=== PATIENT | female | born 1960 | race Caucasian/White ===

== ENCOUNTER 2016-04-01 11:22 | Emergency (ER) | payer BC ==
[2016-04-01] MEDS ORDERED: HYDROcodone/APAP 5-325MG 1 EACH TAB PO STA (12:02)
--- NOTE | 2016-04-01 12:02 | XR ---
EXAMINATION TYPE: XR shoulder complete LT DATE OF EXAM: 04/01/2016 11:57 AM COMPARISON: NONE HISTORY: Injury TECHNIQUE: 3 views FINDINGS: I see no fracture nor dislocation. Joint spaces are normal. There are no pathologic calcifi cations. IMPRESSION: Negative left shoulder exam.
--- NOTE | 2016-04-01 12:10 | ED ---
Upper Extremity HPI - General Chief Complaint: Extremity Injury, Upper Stated Complaint: shoulder pain Time Seen by Provider: 04/01/16 11:35 Source: patient, RN notes reviewed Mode of arrival: ambulatory Limitations: no limitations - History of Present Illness Initial Comments: 56-year-old female presents emergency department for left shoulder pain. Patient states she was pulling some furniture yesterday in which she states she has a pain with worsen overnight. Patient right-hand dominant. Patient denies any clicking or popping. She states any movement she has increased pain. Patient denies paresthesias. Patient states she's had no prior issues with her left shoulder. Patient denies chest pain or shortness of breath. Place: home - Related Data Home Medications Medication Instructions Recorded Confirmed Brio Inhaler 1 puff INHALATION QAM 10/14/15 10/15/15 Hydrochlorothiazide 25 mg PO QAM 10/14/15 10/15/15 Previous Rx's Medication Instructions Recorded traMADol HCL [Ultram] 50 mg PO Q4HR PRN #30 tab 10/15/15 Hydrocodone/Acetaminophen [[place] 1 tab PO Q6HR PRN #15 tab 04/01/16 5-325] Allergies Allergy/AdvReac Type Severity Reaction Status Date / Time STERI STRIPS AdvReac Rash/Hives Uncoded 04/01/16 11:26 Review of Systems ROS Statement: Those systems with pertinent positive or pertinent negative responses have been documented in the HPI. ROS Other: All systems not noted in ROS Statement are negative. Past Medical History Past Medical History: Asthma, Hypertension Additional Past Medical History / Comment(s): PATIENT STATES SHE HAD A VERY BAD POST-OP INFECTION (LESION OFF EAR) 20 YRS AGO AND WAS TREATED AT [facility], ONLY ONE "BIG GUN" ANTIBIOTIC CLEARED UP THE INFECTION, UNKNOWN IF MRSA. History of Any Multi-Drug Resistant Organisms: None Reported Past Surgical History: Tonsillectomy, Tubal Ligation Additional Past Surgical History / Comment(s): 09/28/16STEREOTACTIC BIOPSY RIGHT BREAST. Additional Past Anesthesia/Blood Transfusion Reaction / Comment(s): HAS EMOTIONAL RESPONSE, EITHER VERY AMOUROUS OR AGITATED. Past Psychological History: No Psychological Hx Reported Smoking Status: Former smoker Past Alcohol Use History: Occasional Additional Past Alcohol Use History / Comment(s): SMOKED FOR 40 YRS, QUIT . Past Drug Use History: None Reported - Past Family History Father Family Medical History: Cancer, Deep Vein Thrombosis (DVT) Additional Family Medical History / Comment(s): PANCREATIC CANCER Brother(s) Family Medical History: Cancer General Exam Limitations: no limitations General appearance: alert, in no apparent distress Neck exam: Present: normal inspection, full ROM. Absent: tenderness, meningismus, lymphadenopathy Respiratory exam: Present: normal lung sounds bilaterally. Absent: respiratory distress, wheezes, rales, rhonchi, stridor Cardiovascular Exam: Present: regular rate, normal rhythm, normal heart sounds. Absent: systolic murmur, diastolic murmur, rubs, gallop, clicks Extremities exam: Present: other (Left shoulder limited range of motion secondary pain there is no sulcus no obvious deformity noted tender with palpation patient has good strength of her bicep, tricep region) Neurological exam: Present: alert, oriented X3, CN II-XII intact, reflexes normal. Absent: motor sensory deficit Skin exam: Present: warm, dry, intact, normal color. Absent: rash Course Vital Signs 04/01/16 11:23 Temperature 97.5 F L Pulse Rate 68 Respiratory 20 Rate Blood Pressure 161/92 O2 Sat by Pulse 98 Oximetry Medical Decision Making - Medical Decision Making Per [id number] female presented for left shoulder injury. Patient left shoulder sprain. Patient will be discharged. Disposition Clinical Impression: Strain of shoulder Disposition: HOME SELF-CARE Condition: Stable Instructions: Shoulder Sprain (ED) Additional Instructions: Please return to the Emergency Department if symptoms worsen or any other concerns. Prescriptions: Hydrocodone/Acetaminophen [[place] 5-325] 1 tab PO Q6HR PRN #15 tab PRN Reason: Pain Referrals: Lorrie Walton MD [Primary Care Provider] - 1-2 days Donaldo De Leon DO [Doctor of Osteopathic Medicine] - 1-2 days Time of Disposition: 12:10
[2016-04-01 12:16] VITALS: RESP 16
[2016-04-01 12:22] VITALS: BP 130/94; PULSE 87; TEMP 97.6
== END 2016-04-01 12:22 | disposition home or self-care (01) ==
LOC: EC 11:22
DX: S46.912A Strain of unspecified muscle, fascia and tendon at shoulder and upper arm level, left arm, initial encounter (principal); I10 Essential (primary) hypertension; J45.909 Unspecified asthma, uncomplicated; X50.0XXA Overexertion from strenuous movement or load, initial encounter; Z91.048 Other nonmedicinal substance allergy status; Z79.51 Long term (current) use of inhaled steroids; Z79.899 Other long term (current) drug therapy; Z87.891 Personal history of nicotine dependence
CPT/HCPCS: 99283

== ENCOUNTER → 2016-06-26 | Outpatient (CLI) | payer BC ==
--- NOTE | 2016-06-26 10:49 | MM ---
Reason for exam: history of breast cancer, conservation therapy. Last mammogram was performed 9 months ago. History: Patient is postmenopausal, has history of breast cancer at age 55, and had first child after 28. Malignant MG pre op needle loc RT of the right breast, October 15, 2015. Malignant MG stereo VAD BX RT of the right breast, September 29, 2015. Physical Findings: Nurse did not find any significant physical abnormalities on exam. MG Diagnostic Mammo w CAD ELIOT Bilateral CC and MLO view(s) were taken. Prior study comparison: September 17, 2015, right breast MG work up mamm w CAD RT. September 03, 2015, bilateral MG screening mammo w CAD. There are scattered fibroglandular densities. No significant new findings when compared with previous films. These results were verbally communicated with the patient and result sheet given to the patient on 06/26/16. ASSESSMENT: Benign, BI-RAD 2 RECOMMENDATION: Follow-up diagnostic mammogram of both breasts in 1 year.
== END | disposition home or self-care (01) ==
LOC: RADMAMWWP 09:33
PROVIDERS: ATTEND Radiology Diagnostic Radiology
DX: Z08 Encounter for follow-up examination after completed treatment for malignant neoplasm (principal); Z85.3 Personal history of malignant neoplasm of breast

== ENCOUNTER → 2016-07-07 | Outpatient (CLI) | payer BC ==
[2016-07-07 10:04] LABS: Basophils # (A) 0.1 k/uL (0-0.2); Basophils % (A) 1 %; CH 31.6; CHCM 33.1; Eosinophils # (A) 0.4 k/uL (0-0.7); Eosinophils % (A) 4 %; HCT 45.6 % (34.0-46.0); HDW 2.26; HGB 14.9 gm/dL (11.4-16.0); Luc # (Auto) 0.29; Luc % (Auto) 3; Lymphocytes # (A) 1.5 k/uL (1.0-4.8); Lymphocytes % (A) 13 %; MCH 31.4 pg (25.0-35.0); MCHC 32.7 g/dL (31.0-37.0); MCV 96.2 fL (80.0-100.0); Mean Platelet Volume 7.1; Monocytes # (A) 0.6 k/uL (0-1.0); Monocytes % (A) 5 %; Neutrophils # (A) 8.3 k/uL (1.3-7.7); Neutrophils % (A) 75 %; RBC 4.74 m/uL (3.80-5.40); RDW 13.2 % (11.5-15.5); WBC 11.1 k/uL (3.8-10.6); WBC (Perox) 10.93
[2016-07-07 12:33] LABS: ALT 29 U/L (9-52); AST 21 U/L (14-36); Alkaline Phosphatase 79 U/L (38-126); Anion Gap 11 mmol/L; Blood Urea Nitrogen 18 mg/dL (7-17); Calcium 9.7 mg/dL (8.4-10.2); Carbon Dioxide 28 mmol/L (22-30); Chloride 101 mmol/L (98-107); Glucose 93 mg/dL (74-99); Non-African American GFR(MDRD) >60 (>60 ml/min/1.73 sqM); Potassium 4.1 mmol/L (3.5-5.1); Sodium 140 mmol/L (137-145); Total Bilirubin 0.5 mg/dL (0.2-1.3); Total Protein 6.8 g/dL (6.3-8.2)
[2016-07-07 12:58] LABS: Cancer Anitgen 153 12.8 U/mL (<35.1)
--- NOTE | 2016-07-07 15:47 | BD ---
EXAMINATION TYPE: MG DEXA axial skeleton. DATE OF EXAM: 07/07/2016 9:45 AM COMPARISON: 02.18.2002 CLINICAL HISTORY: C50.411 PERSONAL HX OF BREAST CANCER Height: 57.5 Weight: 107 FRAX RISK QUESTIONS: Alcohol (3 or more units per day): NO Family History (Parent hip fracture): YES, BUT NO FX Glucocorticoids (More than 3mos): YES (Ex: prednisone, prednisolone, methylprednisolone, dexamethasone, and hydrocortisone). History of Fracture in Adulthood: < 50 YRS ONLY Secondary Osteoporosis: NO 1. Type 1 Diabetes: NO 2. Hyperthyroidism: NO 3. Menopause before 45: YES 4. Malnutrition: NO 5. Chronic liver disease: NO Rheumatoid Arthritis: QUESTIONING THAT RIGHT NOW Current Tobacco Use: QUIT LAST AUGUST RISK FACTORS HISTORY OF: Other Fractures since Age 50: < AGE 50...LT ANKLE Family History of Osteoporosis: YES, HER MOTHER WITH NO HIP FXS Smoke tobacco: QUIT AUGUST...2015 Drink Alcohol: NO Active: YES Diet low in dairy products/other sources of calcium: NO Postmenopausal woman: 40 NATURAL Lost more than 2 inches in height since high school: YES Adrenal Insufficiency: NO MEDICATIONS: Prednisone or other steroids: ;BRIEOL, FOR ASTHMA AND COPD How Lon YRS Additional Medications: BP MEDS, HX OF RADIATION, CALCIUM AND VIT D, Additional History: HX OF BR CANCER, SEP 2015, RT BREAST, LUMPECTOMY, ASTHMA, COPD, HYPERTENSION EXAM MEASUREMENTS: Bone mineral densitometry was performed using the [employer] System. Bone mineral density as measured about the Lumbar spine is: ----- L1-L4(G/cm2): -1.3 T Score Values are as follows: ----- L1: -1.9 ----- L2: -1.8 ----- L3: -1.0 ----- L4: -0.8 ----- L1-L4: -1.3 Bone mineral density has: Decreased -7.8% since study of: 02.18.2002 Bone mineral density about the R hip (g/cm2): 0.765 Bone mineral density about the L hip (g/cm2): 0.777 T Score values are as follows: -----R Neck: -1.9 -----L Neck: -1.6 -----R Total: -1.9 -----L Total: -1.8 Bone mineral density has: Decreased -23.4% since study of: 02.18.2002 FRAX %'S: 8.2% CHANCE OF A MAJOR OSTEOPOROTIC FX AND A 1.0% CHANCE OF A HIP FX....PROBABILITY OF FX IN 10 YRS TIME IMPRESSION: Osteopenia (T Score between -2.5 and -1 as noted by T score values There is slightly increased risk of fracture and the patient may be considered for treatment. Re-Screen 2-5 years Bone density is diminished 23.4% within the bilateral hips from 2001. Bone density has diminished 7.8 % within the lumbar spine from 2001 NOTE: T-SCORE=SD OF THE YOUNG ADULT MEAN.
--- NOTE | 2016-07-07 20:40 | XR ---
EXAMINATION TYPE: XR chest 2V DATE OF EXAM: 07/07/2016 10:03 AM COMPARISON: None HISTORY: 56-year-old female with right breast cancer, status post radiation therapy in December 2015. TECHNIQUE: Frontal and lateral views FINDINGS: The cardiomediastinal silhouette, aorta, and pulmonary vasculature are within normal limits. There is hyperinflation with flattening of the hemidiaphragms. Blunting of the right costophrenic angle. No c onsolidation. IMPRESSION: Suspect underlying COPD. Clinically correlate. There is blunting of the right costophrenic angle that could represent a trace effusion or pleural-parenchymal scarring.
== END | disposition home or self-care (01) ==
LOC: RADBDWWP 09:18
DX: M85.80 Other specified disorders of bone density and structure, unspecified site (principal); R91.8 Other nonspecific abnormal finding of lung field; C50.411 Malignant neoplasm of upper-outer quadrant of right female breast
CPT/HCPCS: 36415; 71020; 77080; 80053; 85025; 86300

== ENCOUNTER → 2016-11-24 | Outpatient (CLI) | payer BC ==
[2016-11-24 12:04] LABS: CH 31.5; CHCM 32.7; HDW 2.21; MCH 32.4 pg (25.0-35.0); MCHC 33.5 g/dL (31.0-37.0); MCV 96.8 fL (80.0-100.0); Mean Platelet Volume 7.3; RBC 4.34 m/uL (3.80-5.40); RDW 13.9 % (11.5-15.5); WBC 8.4 k/uL (3.8-10.6)
== END | disposition home or self-care (01) ==
LOC: LABWHC1 11:36
PROVIDERS: ATTEND Dermatology
DX: L63.9 Alopecia areata, unspecified (principal)
CPT/HCPCS: 36415; 82728; 84443; 85027

== ENCOUNTER → 2017-06-27 | Outpatient (CLI) | payer BC ==
--- NOTE | 2017-06-27 12:02 | MM ---
Reason for exam: additional evaluation requested from prior study. Last mammogram was performed 1 year ago. History: Patient is postmenopausal, has history of breast cancer at age 55, and had first child at age 30. Family history of breast cancer in paternal aunt. Malignant MG pre op needle loc RT of the right breast, October 15, 2015. Malignant MG stereo VAD BX RT of the right breast, September 29, 2015. Physical Findings: Nurse Summary: 0.5cm nodule in the left breast at 9 o'clock (nurse kp). MG Diagnostic Mammo w CAD ELIOT Bilateral CC and MLO view(s) were taken. Prior study comparison: June 26, 2016, bilateral MG diagnostic mammo w CAD ELIOT. September 17, 2015, right breast MG work up mamm w CAD RT. The breast tissue is heterogeneously dense. This may lower the sensitivity of mammography. Post therapy change on the right breast. These results were verbally communicated with the patient and result sheet given to the patient on 06/27/17. ASSESSMENT: Benign, BI-RAD 2 RECOMMENDATION: Follow-up diagnostic mammogram of both breasts in 1 year.
--- NOTE | 2017-06-27 12:04 | USB ---
Reason for exam: clinical finding. History: Patient is postmenopausal, has history of breast cancer at age 55, and had first child at age 30. Family history of breast cancer in paternal aunt. Malignant MG pre op needle loc RT of the right breast, October 15, 2015. Malignant MG stereo VAD BX RT of the right breast, September 29, 2015. Indicated problem(s): palpable abnormality in the left breast. US Breast Limited LT Left limited breast ultrasound including focal area of concern, retroareolar and axilla demonstrates a 0.3 x 0.1 x 0.3cm lesion too small to characterize at 10 o'clock, anechoic and well defined border on image 11 mobile per the outsole compressor. Ductal prominence on the left. These results were verbally communicated with the patient and result sheet given to the patient on 06/27/17. ASSESSMENT: Benign, BI-RAD 2 RECOMMENDATION: Follow-up diagnostic mammogram of both breasts in 1 year.
== END | disposition home or self-care (01) ==
LOC: RADMAMWWP 09:37
PROVIDERS: ATTEND Radiology Diagnostic Radiology
DX: Z08 Encounter for follow-up examination after completed treatment for malignant neoplasm (principal); Z85.3 Personal history of malignant neoplasm of breast
CPT/HCPCS: 77066

== ENCOUNTER → 2018-06-28 | Outpatient (CLI) | payer BC ==
--- NOTE | 2018-06-28 11:32 | MM ---
Reason for exam: additional evaluation requested from prior study. Last mammogram was performed 1 year ago. History: Patient is postmenopausal, has history of breast cancer at age 55, and had first child at age 30. Family history of breast cancer in paternal aunt. Malignant MG pre op needle loc RT of the right breast, October 15, 2015. Malignant MG stereo VAD BX RT of the right breast, September 29, 2015. Took hormonal contraceptives for 14 years beginning at age 14. Taking other hormone for 3 years. Physical Findings: Nurse did not find any significant physical abnormalities on exam. MG Diagnostic Mammo w CAD ELIOT Bilateral CC and MLO view(s) were taken. Spot compression CC view(s) were taken of the right breast. Prior study comparison: June 27, 2017, bilateral MG diagnostic mammo w CAD ELIOT. June 26, 2016, bilateral MG diagnostic mammo w CAD ELIOT. The breast tissue is heterogeneously dense. This may lower the sensitivity of mammography. Stable post operative changes right breast. No significant new findings when compared with previous films. These results were verbally communicated with the patient and result sheet given to the patient on 06/28/18. ASSESSMENT: Benign, BI-RAD 2 RECOMMENDATION: Follow-up diagnostic mammogram of both breasts in 1 year.
== END ==
LOC: RADMAMWWP 09:30
PROVIDERS: ATTEND Radiology Diagnostic Radiology
DX: C50.911 Malignant neoplasm of unspecified site of right female breast (principal)
CPT/HCPCS: 77066

== ENCOUNTER → 2018-07-12 | Outpatient (CLI) | payer BC ==
--- NOTE | 2018-07-16 09:16 | BD ---
EXAMINATION TYPE: Axial Bone Density DATE OF EXAM: 07/12/2018 COMPARISON: 07/07/2016 CLINICAL HISTORY: Postmenopausal female. Osteoporosis screening. Height: 58.5 IN Weight: 108 LBS FRAX RISK QUESTIONS: Secondary Osteoporosis: 3. Menopause before 45: AGE 40 Rheumatoid Arthritis: YES RISK FACTORS HISTORY OF: Family History of Osteoporosis: MOTHER Active: YES Postmenopausal woman: AGE 40 MEDICATIONS: Additional Medications: CALCIUM, VIT D, LETROZOLE,HCTZ, PLAQUENIL, BREO INHALER, Additional History: BREAT CANCER WITH RADIATION EXAM MEASUREMENTS: Bone mineral densitometry was performed using the [employer] System. Bone mineral density as measured about the Lumbar spine is: ----- L1-L4(G/cm2): 1.017 T Score Values are as follows: ----- L2: -1.8 ----- L3: -1.0 ----- L4: -1.3 ----- L1-L4: -1.4 Bone mineral density has: Decreased -2.0% since study of: 07/07/2016 Bone mineral density about the R hip (g/cm2): 0.744 Bone mineral density about the L hip (g/cm2): 0.737 T Score values are as follows: -----R Neck: -2.1 -----L Neck: -2.2 -----R Total: -1.9 -----L Total: -2.1 Bone mineral density has: Decreased -1.8% since study of: 07/07/2016 IMPRESSION: Osteopenia (T Score between -2.5 and -1). There is slightly increased risk of fracture and the patient may be considered for treatment. Re-Screen 2-5 years. NOTE: T-SCORE=SD OF THE YOUNG ADULT MEAN.
== END | disposition home or self-care (01) ==
LOC: RADBDWWP 16:12
PROVIDERS: ATTEND Family Medicine
DX: M85.88 Other specified disorders of bone density and structure, other site (principal)
CPT/HCPCS: 77080

== ENCOUNTER → 2019-11-11 | Outpatient (CLI) | payer BC ==
--- NOTE | 2019-11-11 11:34 | MM ---
Reason for exam: additional evaluation requested from prior study. Last mammogram was performed 1 year and 4 months ago. History: Patient is postmenopausal, has history of breast cancer at age 55, and had first child at age 30. Family history of breast cancer in paternal aunt. Malignant MG pre op needle loc RT of the right breast, October 15, 2015. Malignant MG stereo VAD BX RT of the right breast, September 29, 2015. Radiation therapy of the right breast, 2016. Took hormonal contraceptives for 14 years beginning at age 14. Taking antineoplastic for 4 years. Physical Findings: Nurse did not find any significant physical abnormalities on exam. MG Diagnostic Mammo w CAD ELIOT Bilateral CC and MLO view(s) were taken. Prior study comparison: June 28, 2018, bilateral MG diagnostic mammo w CAD ELIOT. June 27, 2017, bilateral MG diagnostic mammo w CAD ELIOT. Post surgical changes right upper outer quadrant. No significant new findings when compared with previous films. These results were verbally communicated with the patient and result sheet given to the patient on 11/11/19. ASSESSMENT: Benign, BI-RAD 2 RECOMMENDATION: Routine screening mammogram of both breasts in 1 year.
== END | disposition home or self-care (01) ==
LOC: RADMAMWWP 10:08
PROVIDERS: ATTEND Radiology Diagnostic Radiology
DX: C50.911 Malignant neoplasm of unspecified site of right female breast (principal)
CPT/HCPCS: 77066

== ENCOUNTER → 2020-01-02 | Outpatient (CLI) | payer BC ==
[2020-01-02 16:30] LABS: Basophils # (A) 0.1 k/uL (0-0.2); Basophils % (A) 2 %; Eosinophils # (A) 0.5 k/uL (0-0.7); Eosinophils % (A) 6 %; HCT 44.3 % (34.0-46.0); HGB 14.7 gm/dL (11.4-16.0); Lymphocytes # (A) 1.3 k/uL (1.0-4.8); Lymphocytes % (A) 17 %; MCH 31.5 pg (25.0-35.0); MCHC 33.2 g/dL (31.0-37.0); MCV 94.9 fL (80.0-100.0); Mean Platelet Volume 8.1; Monocytes # (A) 0.5 k/uL (0-1.0); Monocytes % (A) 6 %; Neutrophils # (A) 5.5 k/uL (1.3-7.7); Neutrophils % (A) 67 %; Platelet Count 381 k/uL (150-450); RBC 4.67 m/uL (3.80-5.40); WBC 8.2 k/uL (3.8-10.6)
[2020-01-03 01:58] LABS: Erythrocyte Sedimentation Rate 7 mm/Hr (0-30)
[2020-01-03 02:53] LABS: ALT 14 U/L (8-44); AST 24 U/L (13-35); African American GFR (CKD) 56.5 (60.0-200.0); Alkaline Phosphatase 54 U/L (41-126); Bilirubin, Conjugated <0.20 mg/dL (0.20-0.40); C Reactive Protein <0.4 mg/dL (0.0-0.8); Non-African American GFR(CKD) 48.7 (60.0-200.0); Total Bilirubin 0.2 mg/dL (0.2-1.2); Total Protein 6.2 g/dL (6.2-8.2)
== END | disposition home or self-care (01) ==
LOC: LABWHC1 15:22
PROVIDERS: ATTEND Internal Medicine
DX: M06.9 Rheumatoid arthritis, unspecified (principal); M54.5 Low back pain; D47.3 Essential (hemorrhagic) thrombocythemia; Z79.899 Other long term (current) drug therapy
CPT/HCPCS: 36415; 80076; 82565; 84520; 85025; 85652; 86140

== ENCOUNTER → 2020-08-26 | Outpatient (CLI) | payer BC ==
[2020-08-26 12:15] LABS: Basophils # (A) 0.1 k/uL (0-0.2); Basophils % (A) 0 %; Eosinophils # (A) 0.2 k/uL (0-0.7); Eosinophils % (A) 1 %; HCT 43.5 % (34.0-46.0); HGB 14.5 gm/dL (11.4-16.0); Lymphocytes # (A) 1.1 k/uL (1.0-4.8); Lymphocytes % (A) 8 %; MCH 30.9 pg (25.0-35.0); MCHC 33.3 g/dL (31.0-37.0); MCV 92.7 fL (80.0-100.0); Monocytes # (A) 0.7 k/uL (0-1.0); Monocytes % (A) 5 %; Neutrophils # (A) 11.4 k/uL (1.3-7.7); Neutrophils % (A) 85 %; Platelet Count 421 k/uL (150-450); RBC 4.69 m/uL (3.80-5.40); RDW 13.5 % (11.5-15.5); WBC 13.5 k/uL (3.8-10.6)
[2020-08-26 12:32] LABS: ALT 14 U/L (4-34); AST 26 U/L (14-36); African American GFR (CKD) >90 (>60 ml/min/1.73 sqM); Albumin 4.3 g/dL (3.5-5.0); Alkaline Phosphatase 60 U/L (38-126); Anion Gap 10 mmol/L; Bilirubin, Delta 0.1 mg/dL (0.0-0.2); Bilirubin,Unconjugated 0.3 mg/dL (0.0-1.1); Blood Urea Nitrogen 16 mg/dL (7-17); C Reactive Protein 1.9 mg/dL (<1.0); Calcium 10.2 mg/dL (8.4-10.2); Carbon Dioxide 30 mmol/L (22-30); Chloride 102 mmol/L (98-107); Glucose 94 mg/dL (74-99); Non-African American GFR(CKD) 85 (>60 ml/min/1.73 sqM); Potassium 4.1 mmol/L (3.5-5.1); Sodium 142 mmol/L (137-145); Total Bilirubin 0.4 mg/dL (0.2-1.3); Total Protein 6.8 g/dL (6.3-8.2)
--- NOTE | 2020-08-26 12:54 | XR ---
EXAMINATION TYPE: XR chest 2V DATE OF EXAM: 08/26/2020 COMPARISON: 07/07/2016 HISTORY: 60-year-old female C5 0.411, lethargic, history of breast cancer. TECHNIQUE: Frontal and lateral views FINDINGS: The cardiomediastinal silhouette, aorta, and pulmonary vasculature are within normal limits. There is hyperinflation with blunted costophrenic angles, unchanged from 2017. Otherwise, lungs and pleural s paces are clear. IMPRESSION: COPD. Blunted costophrenic angles are unchanged from 2017 likely reflecting pleural parenchymal scarr ing rather than trace pleural effusions. No acute cardiopulmonary process seen.
[2020-08-26 13:52] LABS: Erythrocyte Sedimentation Rate 25 mm/hr (0-20)
--- NOTE | 2020-08-27 11:58 | BD ---
EXAMINATION TYPE: Axial Bone Density DATE OF EXAM: 08/26/2020 COMPARISON: NONE CLINICAL HISTORY: Postmenopausal Height: 58 Weight: 100.9 FRAX RISK QUESTIONS: Alcohol (3 or more units per day): no Family History (Parent hip fracture): yes Glucocorticoids (More than 3mos): 3 years (Ex: prednisone, prednisolone, methylprednisolone, dexamethasone, and hydrocortisone). History of Fracture in Adulthood: yes Secondary Osteoporosis: 1. Type 1 Diabetes: no 2. Hyperthyroidism: no 3. Menopause before 45: yes 4. Malnutrition: no 5. Chronic liver disease: no Rheumatoid Arthritis: yes Current Tobacco Use: no RISK FACTORS HISTORY OF: Surgery to Spine/Hip(right/left)/Wrist (right/left): no Family History of Osteoporosis: yes Active: no Diet low in dairy products/other sources of calcium: no Postmenopausal woman: age 40 Lost more than 2 inches in height since high school: no MEDICATIONS: letrozole, hctz, plaquenil, inhaler, vitamins, calcium Prednisone or other steroids: yes How Lon years Osteoporosis Medications: fosamax How Lon years Additional History: pt had breast cancer with radiation treatments EXAM MEASUREMENTS: Bone mineral densitometry was performed using the [employer] System. Bone mineral density as measured about the Lumbar spine is: ----- L1-L4(G/cm2): 1.073 T Score Values are as follows: ----- L2: -1.5 ----- L3: -0.6 ----- L4: -0.4 ----- L1-L4: -0.9 Bone mineral density has: increased 6.6 % since study of: 07.12.2018 Bone mineral density about the R hip (g/cm2): 0.769 Bone mineral density about the L hip (g/cm2): 0.748 T Score values are as follows: -----R Neck: -1.9 -----L Neck: -2.1 -----R Total: -1.7 -----L Total: -1.7 Bone mineral density has: increased 5.3 % since study of: 07.12.2018 FRAX Major osteoporotic fracture risk is 36.2% and hip fracture is is 3.9% IN a 10 year probability o f fracture. IMPRESSION: Osteopenia (T Score between -2.5 and -1). There is slightly increased risk of fracture and the patient may be considered for treatment. Re-Screen 2-5 years. NOTE: T-SCORE=SD OF THE YOUNG ADULT MEAN.
== END | disposition home or self-care (01) ==
LOC: RADBDWWP 10:20
PROVIDERS: ATTEND Family Medicine
DX: M85.89 Other specified disorders of bone density and structure, multiple sites (principal); J44.9 Chronic obstructive pulmonary disease, unspecified; Z85.3 Personal history of malignant neoplasm of breast
CPT/HCPCS: 36415; 71046; 77080; 80053; 80076; 85025; 85652; 86140

== ENCOUNTER → 2020-11-11 | Outpatient (CLI) | payer BC ==
--- NOTE | 2020-11-11 11:49 | MM ---
Reason for exam: additional evaluation requested from prior study. Last mammogram was performed 1 year ago. History: Patient is postmenopausal, has history of breast cancer at age 55, and had first child at age 30. Family history of breast cancer in paternal aunt. Malignant MG pre op needle loc RT of the right breast, October 15, 2015. Malignant MG stereo VAD BX RT of the right breast, September 29, 2015. Lumpectomy of the right breast, 2016. Radiation therapy of the right breast, 2016. Took hormonal contraceptives for 14 years beginning at age 14. Taking antineoplastic beginning at age 55. Physical Findings: Nurse did not find any significant physical abnormalities on exam. MG Diagnostic Mammo w CAD ELIOT Bilateral CC and MLO view(s) were taken. Prior study comparison: November 11, 2019, bilateral MG diagnostic mammo w CAD ELIOT. June 28, 2018, bilateral MG diagnostic mammo w CAD ELIOT. June 27, 2017, bilateral MG diagnostic mammo w CAD ELOIT. June 26, 2016, bilateral MG diagnostic mammo w CAD ELIOT. There are scattered fibroglandular densities. There is no discrete abnormality. No significant new findings when compared with previous films. These results were verbally communicated with the patient and result sheet given to the patient on 11/11/20. ASSESSMENT: Benign, BI-RAD 2 RECOMMENDATION: Follow-up diagnostic mammogram of both breasts in 1 year.
== END | disposition home or self-care (01) ==
LOC: RADMAMWWP 10:14
PROVIDERS: ATTEND Radiology Diagnostic Radiology
DX: N64.89 Other specified disorders of breast (principal); Z85.3 Personal history of malignant neoplasm of breast; Z78.0 Asymptomatic menopausal state; Z80.3 Family history of malignant neoplasm of breast; Z79.3 Long term (current) use of hormonal contraceptives
CPT/HCPCS: 77066

== ENCOUNTER 2020-12-31 12:12 | Emergency (ER) | payer BC ==
[2020-12-31 13:20] VITALS: TEMP 98.1
--- NOTE | 2020-12-31 16:42 | ED ---
General Adult HPI - General Chief complaint: Upper Respiratory Infection Stated complaint: Covid+/Antibodies Time Seen by Provider: 12/31/20 16:31 Source: patient, RN notes reviewed, old records reviewed Mode of arrival: ambulatory Limitations: no limitations - History of Present Illness Initial comments: 60-year-old female history of asthma presenting for evaluation of cough, myalgia. Patient did test positive for coronavirus yesterday. She's had symptoms for approximately 5 days. She is fully vaccinated. She has a history of asthma and has been using her daily inhaler as well as was prescribed a rescue inhaler by her primary care physician. She has a history of rheumatoid arthritis and does not like to use steroids if she does not require them. She has had subjective fever and chills, myalgias, and cough and dyspnea. No vomiting or diarrhea. No lower extremity pain or swelling. He is presenting with request for monoclonal antibodies - Related Data Home Medications Medication Instructions Recorded Confirmed Brio Inhaler 1 puff INHALATION QAM 10/14/15 10/15/15 hydroCHLOROthiazide 25 mg PO QAM 10/14/15 10/15/15 Previous Rx's Medication Instructions Recorded traMADol HCL [Ultram] 50 mg PO Q4HR PRN #30 tab 10/15/15 Hydrocodone/Acetaminophen [[place] 1 tab PO Q6HR PRN #15 tab 04/01/16 5-325] Allergies Allergy/AdvReac Type Severity Reaction Status Date / Time STERI STRIPS AdvReac Rash/Hives Uncoded 12/31/20 13:20 Review of Systems ROS Statement: Those systems with pertinent positive or pertinent negative responses have been documented in the HPI. ROS Other: All systems not noted in ROS Statement are negative. Past Medical History Past Medical History: Asthma, Hypertension Additional Past Medical History / Comment(s): PATIENT STATES SHE HAD A VERY BAD POST-OP INFECTION (LESION OFF EAR) 20 YRS AGO AND WAS TREATED AT [facility], ONLY ONE "BIG GUN" ANTIBIOTIC CLEARED UP THE INFECTION, UNKNOWN IF MRSA. History of Any Multi-Drug Resistant Organisms: None Reported Past Surgical History: Tonsillectomy, Tubal Ligation Additional Past Surgical History / Comment(s): 09/28/16STEREOTACTIC BIOPSY RIGHT BREAST. Additional Past Anesthesia/Blood Transfusion Reaction / Comment(s): HAS EMOTIONAL RESPONSE, EITHER VERY AMOUROUS OR AGITATED. Past Psychological History: No Psychological Hx Reported Smoking Status: Never smoker Past Alcohol Use History: Occasional Past Drug Use History: None Reported - Past Family History Father Family Medical History: Cancer, Deep Vein Thrombosis (DVT) Additional Family Medical History / Comment(s): PANCREATIC CANCER Brother(s) Family Medical History: Cancer General Exam Limitations: no limitations General appearance: alert, in no apparent distress Head exam: Present: atraumatic, normocephalic Eye exam: Present: normal appearance, PERRL ENT exam: Present: normal exam Neck exam: Present: normal inspection. Absent: tenderness, meningismus Respiratory exam: Present: rales, decreased breath sounds. Absent: respiratory distress Cardiovascular Exam: Present: regular rate, normal rhythm GI/Abdominal exam: Absent: distended Extremities exam: Present: normal inspection Neurological exam: Present: alert, oriented X3, CN II-XII intact. Absent: motor sensory deficit Psychiatric exam: Present: normal affect, normal mood Skin exam: Present: warm, dry, intact Course Vital Signs 12/31/20 13:17 Temperature 98.1 F Pulse Rate 65 Respiratory 22 Rate Blood Pressure 125/76 O2 Sat by Pulse 93 L Oximetry Medical Decision Making - Medical Decision Making 60-year-old female with coronavirus. Fully vaccinated. Requesting monoclonal antibodies. Patient is administered monoclonal antibodies in the emergency department. She's given strict return parameters. She will obtain a pulse oximeter. She has good follow-up with her primary care physician. Disposition Clinical Impression: COVID-19 Disposition: HOME SELF-CARE Condition: Fair Instructions (If sedation given, give patient instructions): Coronavirus Disease 2019 (COVID-19) Is patient prescribed a controlled substance at d/c from ED?: No Referrals: Lorrie Walton MD [Primary Care Provider] - 1-2 days Time of Disposition: 16:47
[2020-12-31] MEDS ORDERED: SODIUM CHLORIDE 0.9% 50 ML IVPB ONE (17:00)
[2020-12-31] MEDS ORDERED: CASIRIVIMAB/IMDEVIMAB (EUA) 1,200 MG in SODIUM CHLORIDE 0.9% 100 ML IVPB ONE (17:00)
[2020-12-31 19:17] VITALS: BP 120/77; PULSE 63; RESP 18
== END 2020-12-31 19:36 | disposition home or self-care (01) ==
LOC: EC 12:12
DX: U07.1 COVID-19 (principal); J45.909 Unspecified asthma, uncomplicated; I10 Essential (primary) hypertension; Z98.51 Tubal ligation status; Z90.49 Acquired absence of other specified parts of digestive tract
CPT/HCPCS: 99283; Q0243

== ENCOUNTER → 2021-09-16 | Outpatient (CLI) | payer BC ==
[2021-09-16 17:52] LABS: HCT 45.5 % (37.2-46.3); HGB 14.6 g/dL (12.0-15.0); MCH 29.3 pg (27.0-32.0); MCHC 32.1 g/dL (32.0-37.0); MCV 91.4 fL (80.0-97.0); Mean Platelet Volume 11.1 fL (9.5-12.2); NRBC Per 100 WBC 0 /100 WBCS (0.0-0.0); Platelet Count 397 X 10*3/uL (140-440); RBC 4.98 X 10*6/uL (4.10-5.20); RDW 13.8 % (11.5-14.5); WBC 9.02 X 10*3/uL (4.50-10.00)
[2021-09-16 18:00] LABS: ALT 13 U/L (8-44); AST 24 U/L (13-35); African American GFR (CKD) 78.9 (60.0-200.0); Albumin 4.5 g/dL (3.8-4.9); Albumin/Globulin Ratio 1.88 (1.60-3.17); Alkaline Phosphatase 48 U/L (41-126); Bilirubin, Conjugated <0.20 mg/dL (0.20-0.40); Blood Urea Nitrogen 18.1 mg/dL (9.0-27.0); C Reactive Protein <0.30 mg/dL (0.00-0.80); Globulin 2.4 g/dL (1.6-3.3); Total Protein 6.9 g/dL (6.2-8.2)
[2021-09-16 18:49] LABS: Erythrocyte Sedimentation Rate 10 mm/Hr (0-30)
== END | disposition home or self-care (01) ==
LOC: LABWHC1 13:18
PROVIDERS: ATTEND Internal Medicine
DX: Z79.899 Other long term (current) drug therapy (principal)
CPT/HCPCS: 36415; 80076; 82565; 84520; 85027; 85652; 86140

== ENCOUNTER → 2021-11-14 | Outpatient (CLI) | payer BC ==
--- NOTE | 2021-11-14 10:36 | MM ---
Reason for Exam: Additional evaluation requested from prior study. Last screening mammogram was performed 12 month(s) ago. Patient History: Menarche at age 9. First Full-Term at age 30. Late child-bearing (after 30). Postmenopausal. Breast cancer, right, age 55. Hormonal Contraceptives for 14 years from age 14 until age 28. 2016, Lumpectomy on the Right side. 10/15/2015, Malignant Core Biopsy on the right side. 09/29/2015, Malignant Core Biopsy on the right side. 2016, Radiation Therapy on the right side. Paternal aunt had breast cancer. Prior Study Comparison: 06/28/2018 Bilateral Diagnostic Mammogram, [facility]. 11/11/2019 Bilateral Diagnostic Mammogram, [facility]. 11/11/2020 Bilateral Diagnostic Mammogram, [facility]. Tissue Density: The breast tissue is heterogeneously dense. This may lower the sensitivity of mammography. Findings: Analyzed By CAD. Postsurgical and posttreatment changes right breast. No significant change from prior exams. Overall Assessment: Benign, BI-RAD 2 Management: Screening Mammogram of both breasts in 1 year. 1. Patient should continue monthly self breast exams. 2. A clinical breast exam by your physician is recommended on an annual basis. 3. This exam should not preclude additional follow-up of suspicious palpable abnormalities. Electronically signed and approved by: Guilherme Sharpe M.D. Radiologist
== END ==
LOC: RADMAMWWP 10:03
PROVIDERS: ATTEND Radiology Radiation Oncology
DX: C50.911 Malignant neoplasm of unspecified site of right female breast (principal)
CPT/HCPCS: 77066

== ENCOUNTER → 2023-11-22 | Outpatient (CLI) | payer MEDICARE, BC ==
[2023-11-22 15:28] LABS: Basophils # (A) 0.07 X 10*3/uL (0.00-0.10); Basophils % (A) 0.6 %; Eosinophils # (A) 0.31 X 10*3/uL (0.04-0.35); Eosinophils % (A) 2.5 %; HCT 46.9 % (37.2-46.3); HGB 15.5 g/dL (12.0-15.0); Lymphocytes # (A) 2.11 X 10*3/uL (0.90-5.00); Lymphocytes % (A) 16.9 %; MCH 31.1 pg (27.0-32.0); Mean Platelet Volume 10.5 FL (9.5-12.2); Monocytes # (A) 1.06 X 10*3/uL (0.20-1.00); Monocytes % (A) 8.5 %; NRBC Per 100 WBC 0 X 10*3/uL (0.00-0.01); Neutrophils # (A) 8.83 X 10*3/uL (1.80-7.70); Neutrophils % (A) 70.9 %; Platelet Count 480 X 10*3/uL (140-440); RBC 4.99 X 10*6/uL (4.10-5.20); RDW 15.2 % (11.5-14.5); WBC 12.45 X 10*3/uL (4.50-10.00)
[2023-11-22 15:51] LABS: Erythrocyte Sedimentation Rate 14 mm/Hr (0-30)
[2023-11-22 18:31] LABS: ALT 12 U/L (8-44); AST 19 U/L (13-35); Alkaline Phosphatase 58 U/L (41-126); Blood Urea Nitrogen 14.6 mg/dL (9.0-27.0); C Reactive Protein <0.30 mg/dL (0.00-0.80); Calcium 9.4 mg/dL (8.7-10.3)
== END | disposition home or self-care (01) ==
LOC: LABWHC1 11:17
PROVIDERS: ATTEND Internal Medicine Rheumatology
DX: M25.50 Pain in unspecified joint (principal); M06.4 Inflammatory polyarthropathy; M81.0 Age-related osteoporosis without current pathological fracture
CPT/HCPCS: 36415; 82306; 82310; 82565; 83970; 84075; 84450; 84460; 84520; 85025; 85652; 86140

== ENCOUNTER → 2023-11-22 | Outpatient (CLI) | payer MEDICARE, BC ==
--- NOTE | 2023-11-23 11:23 | MM ---
Reason for Exam: Screening (asymptomatic). Last mammogram was performed 1 year(s) and 1 month(s) ago. Patient History: Menarche at age 9. First Full-Term at age 30. Late child-bearing (after 30). Postmenopausal. Breast cancer, right, age 55. Hormonal Contraceptives for 14 years from age 14 until age 28. 2016, Lumpectomy on the Right side. 10/15/2015, Malignant Core Biopsy on the right side. 09/29/2015, Malignant Core Biopsy on the right side. 2016, Radiation Therapy on the right side. Paternal aunt had breast cancer. Niece had breast cancer, age 41. Sister had breast cancer, age 71. Prior Study Comparison: 11/11/2020 Bilateral Diagnostic Mammogram, [facility]. 11/14/2021 Bilateral MG diagnostic mammo w CAD [facility], [facility]. 11/16/2022 Bilateral MG 3D diag mammo w/cad [facility], [facility]. Tissue Density: There are scattered areas of fibroglandular density. Findings: Analyzed By CAD. Right breast: There is no suspicious group of microcalcifications or new suspicious mass. Left breast: There is no suspicious group of microcalcifications or new suspicious mass. Overall Assessment: Negative, BI-RAD 1 Management: Screening Mammogram of both breasts in [address] [facility] will attempt to contact patient to return for supplemental views and ultrasound if indicated. Patient should continue monthly self-breast exams. A clinical breast exam by your physician is recommended on an annual basis. This exam should not preclude additional follow-up of suspicious palpable abnormalities. Note on Tami scores and lifetime risk: 1. A Tami score greater than 3% is considered moderate risk. If this is the case, consider specialist referral to assess eligibility for a risk reducing agent. 2. If overall lifetime risk for the development of breast cancer is 20% or higher, the patient may qualify for future screening with alternating mammogram and breast MRI. [facility], , 11/23/2023 11:20 AM. Electronically signed and approved by: Frantz Boggs DO
== END | disposition home or self-care (01) ==
LOC: RADMAMWWP 10:45
PROVIDERS: ATTEND Radiology Radiation Oncology
DX: Z12.31 Encounter for screening mammogram for malignant neoplasm of breast
CPT/HCPCS: 77063; 77067

== ENCOUNTER → 2023-11-30 | Outpatient (CLI) | payer MEDICARE, BC ==
--- NOTE | 2023-12-07 10:14 | US ---
EXAMINATION TYPE: US thyroid st tissue head/neck DATE OF EXAM: 11/30/2023 COMPARISON: NONE CLINICAL INDICATION: Female, 63 years old with history of C50.411 BREAST CANCER; Hx breast cancer. TECHNIQUE: Grayscale and color Doppler imaging of the thyroid gland. FINDINGS: GLAND SIZE: Right Lobe: 4.6 x 1.1 x 1.7 cm Overall Parenchyma: heterogeneous Left Lobe: 4.5 x 1.1 x 1.8 cm Overall Parenchyma: heterogeneous Isthmus Thickness: 0.29 cm NODULES RIGHT: # of nodules measured on right: 1 less than 5 mm nodule seen, not fully measured. LEFT: # of nodules measured on left: 1 less than 5 mm nodule seen, not fully measured. ISTHMUS: # of nodules measured in the isthmus: 0 Bilateral neck scanned, no evidence of lymphadenopathy. IMPRESSION: No nodularity seen greater than 1 cm. 2017 ACR TI-RADS LEVEL: *Highest TI-RADS level nodule reported [email or web address] [facility], , 12/07/2023 10:11 AM
== END | disposition home or self-care (01) ==
LOC: RADUSWWP 16:09
DX: C50.411 Malignant neoplasm of upper-outer quadrant of right female breast (principal); Z17.0 Estrogen receptor positive status [ER+]; Z80.9 Family history of malignant neoplasm, unspecified; Z85.3 Personal history of malignant neoplasm of breast
CPT/HCPCS: 76536

== ENCOUNTER → 2024-08-29 | Outpatient (CLI) | payer MEDICARE, BC ==
--- NOTE | 2024-08-29 11:58 | CTL ---
EXAMINATION TYPE: CT Low Dose Lung DATE OF EXAM: 08/29/2024 11:21 AM COMPARISON: None. CLINICAL INDICATION: Female, 64 years old with history of Z12.2 screening for malignant neoplasm; per mustapha tobacco use, history of tobacco use. TECHNIQUE: Multiple axial non-contrast scans were obtained from approximately the lung apices through the upper abdomen. Coronal and sagittal reformatted images were obtained. Low dose technique was uti lized. MIP were created on a separate workstation and submitted for review. CT DLP: 37.5 mGycm, Automated exposure control for dose reduction was used. CT Contrast: Contrast used: None Oral contrast used: None FINDINGS: Lack of intravenous contrast and low dose technique limits the evaluation of the vascular and soft ti ssue structures. LUNGS: No evidence of pulmonary fibrosis. No evidence of focal consolidation, pneumothorax or pleural effusion. Centrilobular emphysema changes. Nodules: RUL: Calcified granuloma. Series 5 image 18.. RML: 3 mm series 5 image 39.. RLL: None. IRINA: None. LLL: None. AIRWAY: Patent and unremarkable. HEART: Size within normal limits. Moderate coronary artery calcifications present. MEDIASTINUM: No gross evidence of adenopathy. VASCULATURE: No aortic aneurysm. MUSCULOSKELETAL: Mild disc degeneration changes are present throughout the thoracolumbar spine. SOFT TISSUES/LYMPH NODES: Unremarkable. LOWER NECK: No significant findings. UPPER ABDOMEN: No significant findings. IMPRESSION: 1. No clinically significant pulmonary nodules. 2. Moderate emphysema. CT LUNG RAD AND CT CHEST RECOMMENDATION: Lung-Rad 2 Benign Appearance or Behavior: Continue annual sc reening with LDCT in 12 months. S Modifier (other clinically significant findings): None Recommend smoking cessation (if current smoker), or continuation of smoking cessation (if prior smoke r). Annual screening for lung cancer with low-dose computed tomography is recommended in adults ages 55 to 77 years who have a 30 pack-year smoking history and currently smoke or have quit within the pa st 15 years. Screening should be discontinued once a person has not smoked for 15 years or develops a health problem that substantially limits life expectancy or the ability or willingness to have curat zay lung surgery. Lung rads 2021 [email or web address] [email or web address], , 08/29/2024 11:55 AM
== END | disposition home or self-care (01) ==
LOC: RADCTMAIN 10:57
PROVIDERS: ATTEND Internal Medicine Critical Care Medicine
DX: Z12.2 Encounter for screening for malignant neoplasm of respiratory organs (principal); J43.2 Centrilobular emphysema; Z87.891 Personal history of nicotine dependence
CPT/HCPCS: 71271